=== PATIENT | female | born 1945 | race African-American/Black ===

== ENCOUNTER 2018-06-21 13:27 | Emergency (ER) | payer BC, OTHER ==
[~2018-06-21] VITALS: Ht 188 cm; Wt 83.9 kg
[2018-06-21] MEDS ORDERED: DIPHTH,PERTUSS(ACELL),TET TOX 0.5 ML DISP.SYRIN. VAX IM ONE (14:00)
--- NOTE | 2018-06-21 14:30 | PHYS DOC ---
Past Medical History Past Medical History: Hypertension Past Surgical History: Hysterectomy Alcohol Use: None Drug Use: None Adult General Chief Complaint Chief Complaint: HEAD INJURY/TRAUMA HPI HPI Patient is a 73 year old AA female who presents to the emergency room with complaints of pain, swelling, and abrasions above her left eye. Patient states she tripped and fell in her apartment today striking her head on a fireplace. Patient denies any loss consciousness, neck pain, vision changes, dizziness, chest pain, nausea, or vomiting. She states that she is unsure when her last tetanus immunization was. Review of Systems Review of Systems Constitutional: Denies fever or chills [] Eyes: Denies change in visual acuity, redness, or eye pain [] HENT: Denies nasal congestion or sore throat [] Respiratory: Denies cough or shortness of breath [] Cardiovascular: No chest pain GI: Denies abdominal pain, nausea, vomiting Musculoskeletal: Denies back pain, neck pain, or joint pain [] Integument: Denies rash reports abrasions above her left eye and swelling Neurologic: Denies headache, focal weakness or sensory changes [] All other systems were reviewed and found to be within normal limits, except as documented in this note. Current Medications Current Medications Current Medications Medications (Trade) Dose Ordered Sig/Maira Start Time Stop Time Status Last Admin Dose Admin Diphtheria/ Tetanus/Acell Pertussis (Boostrix) 0.5 ml ONCE ONCE 06/21/18 14:00 06/21/18 14:01 DC 06/21/18 14:21 0.5 ML Neomycin/ Polymyxin/ Bacitracin (Triple Antibiotic Ointment) 1 pkt 1X ONCE 06/21/18 14:45 06/21/18 14:47 DC 06/21/18 14:45 1 PKT Allergies Allergies Allergies Coded Allergies Type Severity Reaction Last Updated Verified No Known Drug Allergies 01/31/15 No Physical Exam Physical Exam Constitutional: Well developed, well nourished, no acute distress, non-toxic appearance. [] HENT: Normocephalic, bilateral external ears normal, oropharynx moist, no oral exudates, nose normal, swelling and an abrasion above the left eye. [] Eyes: PERRLA, EOMI, conjunctiva normal, no discharge. [] Neck: Normal range of motion, no tenderness, supple, no stridor. [] Cardiovascular:Heart rate regular rhythm, no murmur [] Lungs & Thorax: Bilateral breath sounds clear to auscultation [] Skin: Warm, dry, no erythema, abrasion above the left eye with swelling Back: No tenderness Extremities: No cyanosis, no clubbing, ROM intact, no edema. [] Neurologic: Alert and oriented X 3, normal motor function, normal sensory function, no focal deficits noted. [] Psychologic: Affect normal, judgement normal, mood normal. [] Current Patient Data Vital Signs Vital Signs Date Time Temp Pulse Resp B/P (MAP) Pulse Ox O2 Delivery O2 Flow Rate FiO2 06/21/18 15:00 60 13 140/66 (90) Room Air 98.0 06/21/18 13:30 97.7 99 97.7 EKG EKG [] Radiology/Procedures Radiology/Procedures PROCEDURE: CT HEAD AND CERVICAL SPINE WO CT of the head without contrast, 06/21/2018: HISTORY: Fall, head trauma There is moderate cerebral atrophy. There are mild patchy deep white matter lucencies compatible with chronic ischemic change. Bilateral basal ganglia calcifications are present. The ventricles are within normal limits in size. There is no shift of the midline structures. There is no evidence of acute intracranial hemorrhage or mass effect. IMPRESSION: 1. Chronic findings as described above. 2. No acute intracranial abnormality is detected. CT of the cervical spine without contrast, 06/21/2018: Noncontrast scans were obtained with multiplanar reconstructions produced. There is disc space narrowing with moderate marginal spurring throughout the mid and lower cervical spine. There are mild degenerative changes involving scattered facet joints. There is mild associated central spinal stenosis and mild to moderate foraminal encroachment at multiple levels. No acute fracture or dislocation is identified. IMPRESSION: 1. Moderate multilevel degenerative change. 2. No acute bony abnormality is detected. CT of the orbits without contrast, 06/21/2018: Noncontrast scans were obtained with multiplanar reconstructions produced. There is soft tissue swelling anteriorly over the left eye. The globe is unremarkable. No fracture is identified. No free fluid is evident in the paranasal sinuses. IMPRESSION: 1. Soft tissue swelling anteriorly over the left eye. 2. No acute bony abnormality is detected.[] Course & Med Decision Making Course & Med Decision Making Pertinent Labs and Imaging studies reviewed. (See chart for details) Dx: facial contusion and abrasion, closed head injury CT head, C-spine, and orbits was negative for any acute findings including bleed or fracture. C-collar was removed in the ER. Pt was given a DTap and the abrasion site was cleansed and antibiotic ointment and a bandage was applied by nurse. Pt given head injury precautions, may take tylenol or ibuprofen as needed for pain. Ice to sore areas. Cleanse the abrasion and apply antibiotic ointment twice a day. Follow up with PCP next week, return to ER if symptoms worsen. Patient verbalized an understanding of home care, medications, follow-up , and return to ED instructions and was in agreement with the plan of care. [] Dragon Disclaimer Dragon Disclaimer This electronic medical record was generated, in whole or in part, using a voice recognition dictation system. Departure Departure Impression: Primary Impression: Closed head injury without loss of consciousness Additional Impressions: Fall Contusion of face Facial abrasion Disposition: 01 HOME, SELF-CARE Condition: STABLE Referrals: NO PCP (PCP) Patient Instructions: Abrasion, [id number], Facial or Scalp Contusion, Easy- to-Read, Fall Prevention and Home Safety, [id number], Head Injury, Adult, Easy -to-Read Additional Instructions: Follow the head injury precautions, may take tylenol or ibuprofen as needed for pain. Ice to sore areas. Cleanse the abrasion and apply antibiotic ointment twice a day. Follow up with PCP next week, return to ER if symptoms worsen. Problem Qualifiers Primary Impression: Closed head injury without loss of consciousness Encounter type: initial encounter Qualified Codes: S09.90XA - Unspecified injury of head, initial encounter Additional Impressions: Fall Encounter type: initial encounter Qualified Codes: W19.XXXA - Unspecified fall, initial encounter Contusion of face Encounter type: initial encounter Qualified Codes: S00.83XA - Contusion of other part of head, initial encounter Facial abrasion Encounter type: initial encounter Qualified Codes: S00.81XA - Abrasion of other part of head, initial encounter YING HERNÁNDEZ APRN Jun 21, 2018 14:30
[2018-06-21] MEDS ORDERED: NEOMY/BACITR/POLYMYXIN OINT PACKET. TP ONE (14:45)
[2018-06-21 15:00] VITALS: BP 140/66
--- NOTE | 2018-06-21 15:05 | RAD ---
CT of the head without contrast, 06/21/2018: HISTORY: Fall, head trauma There is moderate cerebral atrophy. There are mild patchy deep white matter lucencies compatible with chronic ischemic change. Bilateral basal ganglia calcifications are present. The ventricles are within normal limits in size. There is no shift of the midline structures. There is no evidence of acute intracranial hemorrhage or mass effect. IMPRESSION: 1. Chronic findings as described above. 2. No acute intracranial abnormality is detected. CT of the cervical spine without contrast, 06/21/2018: Noncontrast scans were obtained with multiplanar reconstructions produced. There is disc space narrowing with moderate marginal spurring throughout the mid and lower cervical spine. There are mild degenerative changes involving scattered facet joints. There is mild associated central spinal stenosis and mild to moderate foraminal encroachment at multiple levels. No acute fracture or dislocation is identified. IMPRESSION: 1. Moderate multilevel degenerative change. 2. No acute bony abnormality is detected. CT of the orbits without contrast, 06/21/2018: Noncontrast scans were obtained with multiplanar reconstructions produced. There is soft tissue swelling anteriorly over the left eye. The globe is unremarkable. No fracture is identified. No free fluid is evident in the paranasal sinuses. IMPRESSION: 1. Soft tissue swelling anteriorly over the left eye. 2. No acute bony abnormality is detected. PQRS Compliance Statement: One or more of the following individualized dose reduction techniques were utilized for this examination: 1. Automated exposure control 2. Adjustment of the mA and/or kV according to patient size 3. Use of iterative reconstruction technique Electronically signed by: Watson Peralta MD (06/21/2018 3:02 PM) [facility]
== END 2018-06-21 15:41 | disposition home or self-care (01) ==
LOC: ER 13:27
DX: S00.83XA Contusion of other part of head, initial encounter (principal); I10 Essential (primary) hypertension; W01.198A Fall on same level from slipping, tripping and stumbling with subsequent striking against other object, initial encounter; Y93.89 Activity, other specified; Y92.89 Other specified places as the place of occurrence of the external cause; Y99.8 Other external cause status
CPT/HCPCS: 70450; 70480; 72125; 90471; 90715; 99284-25

== ENCOUNTER 2018-10-22 08:45 | Emergency (ER) | payer BC, OTHER ==
[~2018-10-22] VITALS: Ht 167.6 cm; Wt 83.9 kg
[2018-10-22] MEDS ORDERED: IV NORMAL SALINE 1000ML BAG 1,000 ML IV ONE (09:30)
[2018-10-22 09:41] LABS: BASO % 1 % (0-3); EOS % 1 % (0-3); HEMATOCRIT 46.2 % (36.0-47.0); HEMOGLOBIN 15.5 g/dL (12.0-15.5); LYMPH # 1.2 x10^3/uL (1.0-4.8); LYMPH % 28 % (24-48); MEAN CORPUSCULAR HEMOGLOBIN 33 pg (25-35); MEAN CORPUSCULAR HGB CONC 34 g/dL (31-37); MEAN CORPUSCULAR VOLUME 97 fL (79-100); MONO # 0.3 x10^3/uL (0.0-1.1); MONO % 7 % (0-9); NEUT # 2.8 x10^3uL (1.8-7.7); NEUT % 63 % (31-73); PLATELET COUNT 158 x10^3/uL (140-400); RED BLOOD COUNT 4.74 x10^6/uL (3.50-5.40); RED CELL DISTRIBUTION WIDTH 14.6 % (11.5-14.5); WHITE BLOOD COUNT 4.5 x10^3/uL (4.0-11.0)
--- NOTE | 2018-10-22 10:15 | RAD ---
Chest, PA and Lateral: Technique: PA and lateral views of the chest were obtained. History: Cough. Comparison: 09/11/2009. Findings: Mild cardiomegaly. The lungs are clear. The pleural margins are clear. Impression: No acute chest process is seen. Electronically signed by: Tanner Patrick MD (10/22/2018 10:12 AM) [facility]
[2018-10-22 10:41] LABS: CALCIUM 10.9 mg/dL (8.5-10.1); CREATININE 1.2 mg/dL (0.6-1.0); GFR 53.6; POTASSIUM 3.5 mmol/L (3.5-5.1)
[2018-10-22 10:48] LABS: ALBUMIN/GLOBULIN RATIO 0.7 (1.0-1.7); TOTAL BILIRUBIN 1.8 mg/dL (0.2-1.0); TOTAL PROTEIN 7.3 g/dL (6.4-8.2)
[2018-10-22 11:11] VITALS: BP 153/66
--- NOTE | 2018-10-22 11:31 | PHYS DOC ---
Past Medical History Past Medical History: Hypertension Past Surgical History: Hysterectomy Alcohol Use: None Drug Use: None Adult General Chief Complaint Chief Complaint: COUGH HPI HPI Patient is a 73 year old female who presents to the ER for evaluation. Patient reports cough, nasal congestion, postnasal drip for the past 2-3 days. Took an [id number]-[id number] cold medicine. Noted to be tachycardic with heart rate in the 120s in fast track and moved to [place] ED. Patient denies any dizziness, chest pain, Demetrio pain, nausea, vomiting, diarrhea, GI bleed symptoms. Takes metoprolol for hypertension reports compliance with hypertensive medications. Review of Systems Review of Systems Constitutional: Denies fever or chills [] Eyes: Denies change in visual acuity, redness, or eye pain [] HENT: Nasal congestion present Respiratory:Cough present, no shortness of breath. Cardiovascular: No chest pain, no orthopnea, no LE edema GI: Denies abdominal pain, nausea, vomiting, bloody stools or diarrhea [] : Denies dysuria or hematuria [] Musculoskeletal: Denies back pain or joint pain [] Integument: Denies rash or skin lesions [] Neurologic: Denies headache, focal weakness or sensory changes [] Endocrine: Denies polyuria or polydipsia [] All other systems were reviewed and found to be within normal limits, except as documented in this note. Current Medications Current Medications Current Medications Medications (Trade) Dose Ordered Sig/Maira Start Time Stop Time Status Last Admin Dose Admin Sodium Chloride 1,000 ml @ 1,000 mls/hr 1X ONCE 10/22/18 09:30 10/22/18 10:29 DC 10/22/18 10:24 1,000 MLS/HR Allergies Allergies Allergies Coded Allergies Type Severity Reaction Last Updated Verified No Known Drug Allergies 01/31/15 No Physical Exam Physical Exam Constitutional: Well developed, well nourished, no acute distress, non-toxic appearance. [] HENT: Normocephalic, atraumatic, bilateral external ears normal, oropharynx moist, no oral exudates, Eyes: PERRLA, EOMI, conjunctiva normal, no discharge. [] Neck: no stridor. [] Cardiovascular:Tachycardic, no murmur, no rubs, no clicks, no gallops Lungs & Thorax: Bilateral breath sounds clear to auscultation [] Abdomen: Bowel sounds normal, soft, no tenderness, no masses, no pulsatile masses. [] Skin: Warm, dry, no erythema, no rash. [] Back: No tenderness, no CVA tenderness. [] Extremities: No tenderness, no cyanosis, no clubbing, ROM intact, no edema. [] Neurologic: Alert and oriented X 3, no focal deficits noted. [] Psychologic: Affect normal, Current Patient Data Vital Signs Vital Signs Date Time Temp Pulse Resp B/P (MAP) Pulse Ox O2 Delivery O2 Flow Rate FiO2 10/22/18 10:37 58 18 162/69 (100) 100 Room Air 10/22/18 08:55 97.6 97.6 Lab Values Laboratory Tests Test 10/22/18 09:32 10/22/18 10:18 White Blood Count 4.5 x10^3/uL (4.0-11.0) Red Blood Count 4.74 x10^6/uL (3.50-5.40) Hemoglobin 15.5 g/dL (12.0-15.5) Hematocrit 46.2 % (36.0-47.0) Mean Corpuscular Volume 97 fL (79-100) Mean Corpuscular Hemoglobin 33 pg (25-35) Mean Corpuscular Hemoglobin Concent 34 g/dL (31-37) Red Cell Distribution Width 14.6 % (11.5-14.5) H Platelet Count 158 x10^3/uL (140-400) Neutrophils (%) (Auto) 63 % (31-73) Lymphocytes (%) (Auto) 28 % (24-48) Monocytes (%) (Auto) 7 % (0-9) Eosinophils (%) (Auto) 1 % (0-3) Basophils (%) (Auto) 1 % (0-3) Neutrophils # (Auto) 2.8 x10^3uL (1.8-7.7) Lymphocytes # (Auto) 1.2 x10^3/uL (1.0-4.8) Monocytes # (Auto) 0.3 x10^3/uL (0.0-1.1) Eosinophils # (Auto) 0.0 x10^3/uL (0.0-0.7) Basophils # (Auto) 0.0 x10^3/uL (0.0-0.2) Sodium Level 142 mmol/L (136-145) Potassium Level 3.5 mmol/L (3.5-5.1) Chloride Level 104 mmol/L (98-107) Carbon Dioxide Level 27 mmol/L (21-32) Anion Gap 11 (6-14) Blood Urea Nitrogen 11 mg/dL (7-20) Creatinine 1.2 mg/dL (0.6-1.0) H Estimated GFR (Cockcroft-Gault) 53.6 BUN/Creatinine Ratio 9 (6-20) Glucose Level 125 mg/dL (70-99) H Calcium Level 10.9 mg/dL (8.5-10.1) H Total Bilirubin 1.8 mg/dL (0.2-1.0) H Aspartate Amino Transferase (AST) 40 U/L (15-37) H Alanine Aminotransferase (ALT) 26 U/L (14-59) Alkaline Phosphatase 93 U/L (46-116) Troponin I Quantitative < 0.017 ng/mL (0.000-0.055) Total Protein 7.3 g/dL (6.4-8.2) Albumin 3.0 g/dL (3.4-5.0) L Albumin/Globulin Ratio 0.7 (1.0-1.7) L Laboratory Tests 10/22/18 09:32 Laboratory Tests 10/22/18 10:18 EKG EKG 0915: Sinus, tachycardic, HR 117. ST segments no significant changes. [] Radiology/Procedures Radiology/Procedures CXR Impression: No acute chest process is seen. Electronically signed by: Tanner Patrick MD (10/22/2018 10:12 AM) [facility][] Course & Med Decision Making Course & Med Decision Making Pertinent Labs and Imaging studies reviewed. (See chart for details) 11:38: Resolution of tachycardia spontaneously. Patient given IV fluids. Reassuring labs with no clear etiology of patient's tachycardia on presentation. Heart rate now in 60s to 70s and normal sinus rhythm. Blood pressure stable. Advised continue compliance with all medications. Suspect possible interaction of [id number] medication although is unclear with the active ingredients were. Discussed continue supportive care for URI. Chest x -ray with no acute findings. Labs and x-ray discussed at length with patient. Advised close follow-up with PCP. ER return precautions given. Patient verbalized understanding. All questions answered. Dragon Disclaimer Dragon Disclaimer This electronic medical record was generated, in whole or in part, using a voice recognition dictation system. Departure Departure Impression: Primary Impression: Cough Additional Impression: Tachycardia Disposition: 01 HOME, SELF-CARE Condition: IMPROVED Referrals: NO PCP (PCP) Patient Instructions: Upper Respiratory Infection, Adult Additional Instructions: Thank you for coming to [facility]. Please read the attached handouts. Please follow-up with your primary care physician. Continue home medications. Consider [id number] Mucinex. Return to the ER if your symptoms worsen or you have any other concerns. Problem Qualifiers ALFRED GIFFORD DO Oct 22, 2018 11:31
--- NOTE | 2018-10-22 12:57 | EKG ---
[facility] [address] [place] [address] Test Date: 2018-10-22 Test Time: 09:15:38 Pat Name: BEST PABLO Department: Room: Gender: F [employer] Super[employer]: : [id number] Requested By: ALFRED GIFFORD Order Number: [id number] Reading MD: Valente Hooper MD Measurements Intervals [place] Rate: 117 P: 180 [place]: 132 QRS: -18 QRSD: 76 T: 111 QT: 334 QTc: 470 Interpretive Statements SINUS TACHYCARDIA NON-SPECIFIC ST/T CHANGES Electronically Signed On 10-24-2018 14:12:12 HEAD TELLER by Valente Hooper MD
== END 2018-10-22 11:55 | disposition home or self-care (01) ==
LOC: ER 08:45
DX: R05 Cough (principal); R00.0 Tachycardia, unspecified; R09.81 Nasal congestion; R09.82 Postnasal drip; I10 Essential (primary) hypertension
CPT/HCPCS: 36415; 71046; 80053; 84484; 85025; 93005; 99284; J7030; 96360; 96361

== ENCOUNTER → 2021-02-08 | Outpatient (CLI) | payer BC, MEDICARE ==
[2021-02-08 11:28] LABS: BASO % 1 % (0-3); EOS # 0.1 x10^3/uL (0.0-0.7); EOS % 3 % (0-3); HEMATOCRIT 46.2 % (36.0-47.0); HEMOGLOBIN 15.7 g/dL (12.0-15.5); LYMPH # 1.4 x10^3/uL (1.0-4.8); LYMPH % 42 % (24-48); MEAN CORPUSCULAR HEMOGLOBIN 33 pg (25-35); MEAN CORPUSCULAR HGB CONC 34 g/dL (31-37); MEAN CORPUSCULAR VOLUME 96 fL (79-100); MONO # 0.3 x10^3/uL (0.0-1.1); MONO % 10 % (0-9); NEUT # 1.5 x10^3/uL (1.8-7.7); NEUT % 45 % (31-73); PLATELET COUNT 149 x10^3/uL (140-400); RED BLOOD COUNT 4.79 x10^6/uL (3.50-5.40); RED CELL DISTRIBUTION WIDTH 15.3 % (11.5-14.5); WHITE BLOOD COUNT 3.4 x10^3/uL (4.0-11.0)
[2021-02-08 11:44] LABS: GFR 65.8; POTASSIUM 3.7 mmol/L (3.5-5.1)
[2021-02-08 11:45] LABS: CHOLESTEROL/HDL RATIO 3.5
== END ==
LOC: LAB 10:52
PROVIDERS: ATTEND Internal Medicine Cardiovascular Disease
DX: I10 Essential (primary) hypertension (principal)
CPT/HCPCS: 36415; 80048; 80061; 85025

== ENCOUNTER 2021-06-07 21:26 | Emergency (ER) | payer BC, MEDICARE ==
[~2021-06-07] VITALS: Ht 172.7 cm; Wt 83.0 kg
[2021-06-08 01:50] VITALS: BP 132/92
--- NOTE | 2021-06-08 02:10 | PHYS DOC ---
Past Medical History Past Medical History: Hypertension Past Surgical History: Hysterectomy Smoking Status: Former Smoker Alcohol Use: None Drug Use: None General Adult EDM: Chief Complaint: INSECT BITE HPI: HPI: Patient is a 76 year old female who presents with redness on her right thigh after an insect sting. States she was sitting on her porch and she felt an insect on her leg. She swatted at it, and when she inspected the area she saw that there was a stinger lodged. She was able to remove this on her own. She does have some redness and a little bit of tenderness around this area since. Denies any wheezing, shortness of breath, GI symptoms, or oral swelling. No lightheadedness or presyncope. She stated, because it was still red she wanted to get it checked out. Review of Systems: Review of Systems: Constitutional: Denies fever or chills. [] Eyes: Denies change in visual acuity. [] HENT: Denies nasal congestion or sore throat. [] Respiratory: Denies cough or shortness of breath. [] Cardiovascular: Denies chest pain or edema. [] GI: Denies abdominal pain, nausea, vomiting, bloody stools or diarrhea. [] : Denies dysuria. [] Musculoskeletal: Denies back pain or joint pain. [] Integument: Insect sting on right thigh. [] Neurologic: Denies headache, focal weakness or sensory changes. [] Endocrine: Denies polyuria or polydipsia. [] Lymphatic: Denies swollen glands. [] Psychiatric: Denies depression or anxiety. [] Heart Score: C/O Chest Pain: No Risk Factors: Risk Factors: DM, Current or recent (<one month) smoker, HTN, HLP, family history of CAD, obesity. Risk Scores: Score 0 - 3: 2.5% MACE over next 6 weeks - Discharge Home Score 4 - 6: 20.3% MACE over next 6 weeks - Admit for Clinical Observation Score 7 - 10: 72.7% MACE over next 6 weeks - Early Invasive Strategies Allergies: Allergies: Allergies Coded Allergies Type Severity Reaction Last Updated Verified No Known Drug Allergies 01/31/15 No Physical Exam: PE: Constitutional: Well developed, well nourished, no acute distress, non-toxic appearance. [] HENT: Normocephalic, atraumatic, bilateral external ears normal, oropharynx moist, no oral exudates, nose normal. [] Eyes: PERRLA, EOMI, conjunctiva normal, no discharge. [] Neck: Normal range of motion, no tenderness, supple, no stridor. [] Cardiovascular:Heart rate regular rhythm, no murmur [] Lungs & Thorax: Bilateral breath sounds clear to auscultation [] Abdomen: Bowel sounds normal, soft, no tenderness, no masses, no pulsatile masses. [] Skin: Approximately 3 mm diameter circular erythema and induration over the r ight medial thigh. No fluctuance. No stinger seen. Back: No tenderness, no CVA tenderness. [] Extremities: No tenderness, no cyanosis, no clubbing, ROM intact, no edema. [] Neurologic: Alert and oriented X 3, normal motor function, normal sensory function, no focal deficits noted. [] Psychologic: Affect normal, judgement normal, mood normal. [] EKG: EKG: [] Radiology/Procedures: Radiology/Procedures: [] Course & Med Decision Making: Course & Med Decision Making Pertinent Labs and Imaging studies reviewed. (See chart for details) Patient is 76-year-old female who presents with some skin redness after an insect sting. No systemic symptoms, vital sign abnormalities, or exam findings to suggest an anaphylactic reaction. This all appears to be localized inflammation 2/2 insect sting. Advised supportive care, and return precautions for fever/chills, or expanding redness after 48 hours. Dragon Disclaimer: Dragon Disclaimer: This electronic medical record was generated, in whole or in part, using a voice recognition dictation system. Departure Departure Disposition: HOME / SELF CARE / HOMELESS Condition: STABLE Referrals: NO PCP (PCP) CECIL FIERRO MD Jun 08, 2021 02:10
== END 2021-06-08 02:40 | disposition home or self-care (01) ==
LOC: ER 21:26
DX: T65.91XA Toxic effect of unspecified substance, accidental (unintentional), initial encounter (principal); I10 Essential (primary) hypertension; Z87.891 Personal history of nicotine dependence; W57.XXXA Bitten or stung by nonvenomous insect and other nonvenomous arthropods, initial encounter; Y93.89 Activity, other specified; Y92.89 Other specified places as the place of occurrence of the external cause; Y99.8 Other external cause status
CPT/HCPCS: 99281